=== PATIENT | female | born 1995 | race Caucasian/White ===

== ENCOUNTER → 2023-03-03 13:51 | Outpatient (CLI) | payer OTHER, SELFPAY ==
[2023-03-03 14:39] LABS: Add Manual Diff / Slide Review NO; Basophils Absolute Auto 100 /uL (0-100); Basophils Percent Auto 0.7 % (0-2); Eosinophils Absolute Auto 100 /uL (0-450); Eosinophils Percent Auto 0.8 % (2-4); Hematocrit 38.4 % (36-46); Hemoglobin 13.3 g/dL (12.0-16.0); Lymphocytes Absolute Auto 1300 /uL (1100-4500); Lymphocytes Percent Auto 15.8 % (25-40); Mean Corpuscular HGB Conc 34.6 % (30-36); Mean Corpuscular Hemoglobin 30.2 PG (26-34); Mean Corpuscular Volume 87.4 fL (80-100); Monocytes Absolute Auto 400 /uL (0-900); Monocytes Percent Auto 4.6 % (3-14); Neutrophils Absolute Auto 6600 /uL (1500-7000); Neutrophils Percent Auto 78.1 % (50-75); Platelet Count 214 X10^3/uL (150-400); Red Blood Cell Count 4.39 X10^6/uL (4.0-5.2); Red Cell Distribution Width 13.4 % (11.6-14.8); White Blood Cell Count 8.5 X10^3/uL (4.5-11.0)
[2023-03-03 15:28] LABS: Hepatitis B Surface Antigen NEGATIVE s/c (NEGATIVE); Rubella Antibody IgG 1.9 IU/mL (>15)
[2023-03-03 15:44] LABS: HIV 1 & 2 Ab/Ag 4th Gen Combo NEGATIVE (NEGATIVE); Hep C Virus Ab w/Reflex Quant NEGATIVE s/c (NEGATIVE)
[2023-03-04 10:02] LABS: RPR Screen Non Reactive (Non Reactive); Varicella IgG Antibody 461 index (Immune >165)
== END ==
PROVIDERS: Referring Provider Obstetrics & Gynecology; Visit Provider Obstetrics & Gynecology
DX: Z34.01 Encounter for supervision of normal first pregnancy, first trimester (principal)
CPT/HCPCS: 36415; 80055; 86787; 86803; 86850; 86900; 86901; 87086; 87389

== ENCOUNTER → 2023-05-15 06:55 | Outpatient (CLI) | payer OTHER, SELFPAY ==
--- NOTE | 2023-05-15 06:56 | DI.US.S_ITS ---
PROCEDURE: US OB >= 14 WEEKS FETUS INDICATIONS: Anatomy Scan 20 wks OUTSIDE/PRIOR DATING DATA: LMP-based estimated date of delivery (MORELIA): September 27, 2023. The calculations are made using the clinical office generated MORELIA of September 27, 2023. TECHNIQUE: Real-time scanning was performed of the fetus, with image documentation and biometric measurements. Endovaginal scanning: Not performed COMPARISON: None. FINDINGS: General: A single living intrauterine gestation is present. Presentation: Variable. Placenta: Placental position is anterior , without previa. Amniotic fluid index: 11.8 cm, normal range is 5-24 cm. Single deepest vertical pocket is 3.1 cm. heart rate: 136 beats per minute. Maternal cervical canal: A 3.7 cm long. Normal lower limit is 2.5 cm. biometrics: Biparietal diameter: 4.8 cm, 20 weeks and 3 days Head circumference: 18.5 cm, 20 weeks and 6 days Abdominal circumference: 15.4 cm, 20 weeks and 4 days Femur length: 3.4 cm, 20 weeks and 5 days Clinically estimated gestational age: 20 weeks and 5 days Composite gestational age from present scan: 20 weeks and 5 days Estimated weight and percentile: 367 g, 41st percentile by gestational age Anatomic survey: Neuro: Ventricles are non-dilated at less than 10 mm. Cisterna magna is normal at 3-11 mm. Cerebellum is normal in size and morphology. Nuchal skin fold: Normal at less than 6 mm between 14-21 weeks gestational age. Face: Nose and lips, facial profile are normal. Spine: No evidence for spina bifida. Heart: 4-chambered heart is present, with normal ventricular outflow tracts. Diaphragm: Diaphragm is intact. Stomach: Left-sided stomach is present. Kidneys: No hydronephrosis. Normal is less than 5 mm in 2nd trimester, less than 7 mm in 3rd trimester. Cord: 3-vessel cord has orthotopic insertion. Bladder: Normal in size. Extremities: All 4 extremities identified. IMPRESSION: Single living intrauterine gestation with estimated sonographic gestational age of approximately 20 weeks and 5 days. Normal interval growth has occurred. Estimated weight of approximately 367 g which correlates with the 41st percentile. Normal second-trimester anatomy screening survey. We strive to produce accurate, complete, and clear reports of imaging services. To assist us in improving patient care, this report was composed using standard report templates and voice recognition software. Therefore, it may contain abnormal punctuation, insertions and/or omissions. Occasional wrong-word or sound-alike substitutions may occur. Though we review the report and make efforts to correct it, we do recommend that the report be read carefully in proper context to recognize any text inaccuracies. Dictated by: Antonio Rice M.D. on 05/15/2023 at 11:09 Approved by: Antonio Rice M.D. on 05/15/2023 at 11:12
== END ==
LOC: US 06:56
PROVIDERS: Referring Provider Obstetrics & Gynecology; Visit Provider Obstetrics & Gynecology
DX: Z34.92 Encounter for supervision of normal pregnancy, unspecified, second trimester (principal); Z3A.20 20 weeks gestation of pregnancy
CPT/HCPCS: 76811

== ENCOUNTER → 2023-06-18 13:07 | Outpatient (CLI) | payer OTHER, SELFPAY ==
[2023-06-18 15:06] LABS: Hematocrit 33.2 % (36-46); Hemoglobin 11.3 g/dL (12.0-16.0)
[2023-06-18 16:36] LABS: GTT (PREG) 1 Hour PP 50gm Dose 83 mg/dL (76-139)
== END ==
PROVIDERS: Referring Provider Obstetrics & Gynecology; Visit Provider Obstetrics & Gynecology
DX: Z34.02 Encounter for supervision of normal first pregnancy, second trimester (principal); Z3A.26 26 weeks gestation of pregnancy
CPT/HCPCS: 82950; 85014; 85018

== ENCOUNTER 2023-07-10 09:06 | Observation (INO) | payer OTHER, SELFPAY | END 2023-07-10 11:48 | disposition home or self-care (01) | PROVIDERS: Admitting Provider Obstetrics & Gynecology; Referring Provider Obstetrics & Gynecology; Visit Provider Obstetrics & Gynecology | DX: O36.8130 Decreased fetal movements, third trimester, not applicable or unspecified (principal); Z3A.28 28 weeks gestation of pregnancy | CPT/HCPCS: 59025; 59050; 76815; G0378; G0379 ==

== ENCOUNTER → 2023-09-04 08:52 | Outpatient (CLI) | payer OTHER, SELFPAY ==
[2023-09-05 13:16] LABS: Strep Grp B PCR POS for Grp B Strep
== END ==
PROVIDERS: Visit Provider Obstetrics & Gynecology
DX: Z34.83 Encounter for supervision of other normal pregnancy, third trimester (principal); Z3A.36 36 weeks gestation of pregnancy
CPT/HCPCS: 87653

== ENCOUNTER 2023-09-11 11:04 | Outpatient (CLI) | payer OTHER, SELFPAY ==
[2023-09-11 11:52] LABS: Add Manual Diff / Slide Review NO; Basophils Absolute Auto 100 /uL (0-100); Basophils Percent Auto 0.9 % (0-2); Eosinophils Absolute Auto 100 /uL (0-450); Eosinophils Percent Auto 1.7 % (2-4); Hematocrit 35.8 % (36-46); Lymphocytes Absolute Auto 1400 /uL (1100-4500); Lymphocytes Percent Auto 17.5 % (25-40); Mean Corpuscular HGB Conc 33.4 % (30-36); Mean Corpuscular Hemoglobin 29.6 PG (26-34); Mean Corpuscular Volume 88.5 fL (80-100); Monocytes Absolute Auto 700 /uL (0-900); Neutrophils Absolute Auto 5800 /uL (1500-7000); Neutrophils Percent Auto 70.9 % (50-75); Platelet Count 182 X10^3/uL (150-400); Red Blood Cell Count 4.04 X10^6/uL (4.0-5.2); Red Cell Distribution Width 15.4 % (11.6-14.8); White Blood Cell Count 8.2 X10^3/uL (4.5-11.0)
[2023-09-11 12:03] LABS: Aspartate Aminotransferase 28 IU/L (14-36); BUN Creatinine Ratio 14.3 (6-22); Blood Urea Nitrogen 9 mg/dL (7-17); Estimated Glomerular Filt Rate > 60 mL/min (>60); Uric Acid 4.2 mg/dL (2.5-6.2); Uric Acid 4.3 mg/dL (2.5-6.2)
[2023-09-11 12:12] LABS: Creatinine Urine Random 10.03 mg/dL; Protein (Total) Urine Random 17 mg/dL (0-12); Protein Creatinine Ratio Urine 1.69 GRAM/24H
== END 2023-09-11 12:55 | disposition home or self-care (01) ==
LOC: LABOR 12:29 → OB 09-16 08:11
PROVIDERS: Referring Provider Obstetrics & Gynecology; Visit Provider Obstetrics & Gynecology
DX: O09.513 Supervision of elderly primigravida, third trimester (principal); O16.3 Unspecified maternal hypertension, third trimester; Z3A.37 37 weeks gestation of pregnancy
CPT/HCPCS: 36415; 59025; 59050; 82570; 84156; 84450; 84550; 85025; G0378; G0379

== ENCOUNTER → 2023-09-16 07:01 | Outpatient (CLI) | payer OTHER, SELFPAY ==
--- NOTE | 2023-09-16 07:02 | DI.ECHO.S_ITS ---
[facility] : : [address] : : [place] : : [id number] : : Phone: [phone] Echocardiogram Report + + :Name: BRENDAN ALONSO Study Date: 09/16/2023 Height: 63 in : :[facility] ReadingLocation: Weight: 190 lb : : Gender: Female BSA: 1.9 m2 : :: 1995 Age: 28 yrs BP: 123/81 mmHg: :Reason For Study: RULE OUT BICUSPID AORTIC VALVE : :Ordering Physician: FUAD, : :KIMMY Beckman Performed By: Olga Hartman : :Referring: KIMMY MERIDA : + + Interpretation Summary 1) Normal left ventricular thickness, size, and systolic function (EF 55-60%). 2) Normal right ventricular size and function. 3) The aortic valve is trileaflet. No significant valvular abnormalities noted. 4) No prior Echo available for comparison. Procedure: A two-dimensional transthoracic echocardiogram with color flow and Doppler was performed. The study quality was technically adequate. There is no prior echocardiogram noted for this patient. The patient was in sinus rhythm with heart rates between 61-78 bpm during the exam. Left Ventricle: The left ventricle is normal in size and wall thickness. The ejection fraction is estimated to be 55-60%. Left ventricular systolic function appears normal without focal wall motion abnormalities. Right Ventricle: The right ventricle is normal in size and function. Atria: The left atrial size is normal. Right atrium not well visualized. There is no Doppler evidence for an interatrial shunt. Mitral Valve: The mitral valve is normal in structure and function. There is trace mitral regurgitation. Aortic Valve: The aortic valve is trileaflet. The aortic valve opens well. There is no aortic valve stenosis. No aortic regurgitation is present. Tricuspid Valve: The tricuspid valve is normal in structure and function. There is trace tricuspid regurgitation. Pulmonic Valve: The pulmonic valve leaflets are thin and pliable; valve motion is normal. There is trace pulmonic regurgitation. Great Vessels: The aortic root is normal size. The IVC is of normal diameter and collapses greater than 50% with a sniff. This suggests a low right atrial pressure of 3 mm Hg. Pericardium/ Pleura There is no pericardial effusion. There is no pleural effusion. MMode/2D Measurements & Calculations LVIDd: 4.8 cm LVOT diam: 2.1 cm LVIDs: 3.0 cm Ao root diam: 2.8 cm FS: 38.9 % asc Aorta Diam: 2.9 cm IVSd: 0.84 cm Ao Arch Diam (Prox Trans): 2.6 cm LVPWd: 0.87 cm LV alcaraz. diameter/BSA (cm/m^2): 2.6 LV sys. diameter/BSA (cm/m^2): 1.6 LA A2 area: 17.7 cm2 RA long axis: 5.2 cm LA A4 area: 16.2 cm2 RA area: 18.1 cm2 LA length (vol): 5.0 cm RA vol: 53.1 ml LA vol: 48.5 ml RA : 28.1 ml/m2 LA vol index: 25.6 ml/m2 IVC diam: 0.80 cm RVD1 (basal): 3.9 cm TAPSE: 2.4 cm Doppler Measurements & Calculations Ao V2 max: 113.7 cm/sec LVOT Max Arnaldo: 69.9 cm/sec Ao V2 mean: 78.8 cm/sec LV V1 max P.0 mmHg Ao max P.2 mmHg LV V1 VTI: 14.6 cm Ao mean P.8 mmHg VIRGIL(I,D): 2.0 cm2 Ao V2 VTI: 24.6 cm VIRGIL(V,D): 2.1 cm2 sev ratio: 0.59 VIRGIL indexed to BSA (cm^2/m^2): 1.0 MV E max arnaldo: 77.1 cm/sec PA V2 max: 91.9 cm/sec MV A max arnaldo: 37.2 cm/sec PA V2 mean: 63.7 cm/sec MV E/A: 2.1 PA mean P.8 mmHg Med Peak E' Arnaldo: 9.5 cm/sec PA pr(Accel): 37.9 mmHg E/E' med: 8.1 Lat Peak E' Arnaldo: 11.9 cm/sec E/E' lat: 6.5 E/e' average: 7.3 MV dec time: 0.21 sec SV(LVOT): 48.8 ml Reading Physician:09:39 AM
== END ==
PROVIDERS: Referring Provider Specialist; Visit Provider Specialist
DX: Z34.00 Encounter for supervision of normal first pregnancy, unspecified trimester (principal); Z82.79 Family history of other congenital malformations, deformations and chromosomal abnormalities
CPT/HCPCS: 93306

== ENCOUNTER 2023-09-19 10:46 | Outpatient (CLI) | payer OTHER, SELFPAY | END 2023-09-19 11:50 | disposition home or self-care (01) | LOC: LABOR 11:28 → OB 09-22 08:12 | PROVIDERS: Referring Provider Obstetrics & Gynecology; Visit Provider Obstetrics & Gynecology | DX: O47.1 False labor at or after 37 completed weeks of gestation (principal); Z3A.39 39 weeks gestation of pregnancy | CPT/HCPCS: 59025; 84112; G0378; G0379 ==

== ENCOUNTER 2023-09-21 23:11 | Inpatient (IN) | payer OTHER, SELFPAY ==
[2023-09-22 00:02] LABS: Add Manual Diff / Slide Review NO; Basophils Absolute Auto 100 /uL (0-100); Basophils Percent Auto 0.7 % (0-2); Eosinophils Absolute Auto 100 /uL (0-450); Eosinophils Percent Auto 0.8 % (2-4); Hematocrit 37.3 % (36-46); Hemoglobin 12.5 g/dL (12.0-16.0); Lymphocytes Absolute Auto 1800 /uL (1100-4500); Mean Corpuscular HGB Conc 33.4 % (30-36); Mean Corpuscular Hemoglobin 29.6 PG (26-34); Mean Corpuscular Volume 88.5 fL (80-100); Monocytes Absolute Auto 800 /uL (0-900); Monocytes Percent Auto 7.3 % (3-14); Neutrophils Absolute Auto 8300 /uL (1500-7000); Neutrophils Percent Auto 75.2 % (50-75); Platelet Count 185 X10^3/uL (150-400); Red Blood Cell Count 4.22 X10^6/uL (4.0-5.2); Red Cell Distribution Width 16.4 % (11.6-14.8)
[2023-09-22] MEDS: LACTATED RINGERS 1,000 ML 100 ML IV (00:17)
[2023-09-22] MEDS: AMPICILLIN 2,000 MG in SODIUM CHLORIDE 0.9% 100 ML 200 MG IV (00:17)
[2023-09-22 01:03] VITALS: BP 126/85
[2023-09-22] MEDS: AMPICILLIN 1,000 MG in SODIUM CHLORIDE 0.9% 100 ML 200 MG IV (04:06)
--- NOTE | 2023-09-22 05:08 | PM.OBHP.IH.1 ---
OB HPI Date/Time Date of admission: 09/22/23 Date Patient Seen: 09/22/23 Time Patient Seen: 05:08 History of Present Condition Chief complaint: Labor MORELIA Calculator Estimated Delivery Date Method Current WG Current Estimate 09/27/23 LMP (Certain) 39w 2d Estimated Gestational Age (weeks): 39+2 : 1 Para: 0 care: good care, initiated at week # (7), number of visits (12) and pounds weight gain (48) Dating criteria OB: LMP confirmed by 1st trimester US Ultrasounds: normal 1st trimester US Obstetrical complications: none Medical complications OB: none Preadmission Labs Last OB Lab Results: Blood Type A Positive 09/21/23 23:50 Antibody Screen Negative 09/21/23 23:50 Hematocrit 37.3 % (36-46) 09/21/23 23:50 Hemoglobin 12.5 g/dL (12.0-16.0) 09/21/23 23:50 Hepatitis B Surface Antigen Negative s/c (NEGATIVE) 03/03/23 13:59 Hepatitis C Antibody Negative s/c (NEGATIVE) 03/03/23 13:59 Rubella Antibody 1.9 IU/mL (>15) L 03/03/23 13:59 Varicella-Zoster IgG Antibody 461 index (Immune >165) 03/03/23 13:59 Glucose 1 Hour 83 mg/dL (76-139) 06/18/23 14:20 Group B Streptococcus (PCR) Pos for grp b strep H 09/04/23 08:52 -: Chlamydia screen: negative, Gonorrhea screen: negative and Urine: negative -: PAP smear: Normal Genetic Screens: Cell-free DNA: Normal External Labs -: Urine: negative Evaluation Evaluation Baseline heart rate: 145 Variability: Moderate (11-25) monitor accelerations: Present Monitor Decelerations: Absent Uterine Contraction Intensity: Strong/Firm Dilation (cm): 10 (per RN) Effacement (%): 100 station: +1 Position of cervix: anterior Consistency: soft PFSH Medical History (Updated 09/16/23 @ 16:35 by Vivian Melgar DO) Anxiety Surgical History (Updated 02/05/23 @ 15:44 by Alise Egan, RN) H/O oral surgery [place] teeth extracted Family History (Updated 02/05/23 @ 15:50 by Alise Egan RN) Mother Ocular melanoma Father Prostate cancer Grandfather Skin cancer Uncle Bone cancer Uncle Bladder cancer Family/Other Diabetes mellitus Grandfather Heart attack Brother Congenital heart defect Social History marital status: number of children: 0 household members: spouse lives independently: Yes caregiver/support person: Yes housing: condominium pets and animals: Yes education level: college (bachelor's degree) occupational status: employed (substitute para-educator, package designer) current occupational exposures/hazards: No darlin/gnosticist: Confucianism special darlin needs: Yes (Would want a photo mask processor for last rites if necessary) travel history: recent (domestic only) seatbelt use: always helmet use: Yes water heater temp set < 120 deg: Yes working smoke detector in home: Yes fire extinguisher in home: No carbon monox detector in home: Yes firearms in home: No do you feel safe at home: Yes Smoking Status: Never smoker second hand exposure: No alcohol intake: former (rarely when not ) substance use type: does not use during the past year weight has: remained stable well-balanced diet: daily or most days daily servings fruits/ve-4 caffeine: Yes (AM cup coffee) Type(s) of exercise: bicycling (stationary bike), weight lifting and running Meds Home Medications and Allergies Home Medications Medication Instructions Recorded Confirmed Type vitamin-ferrous sulfate tab PO 02/05/23 09/18/23 History 27 mg iron-folic acid 0.8 mg tablet sertraline 50 mg tablet (Zoloft) 75 mg PO DAILY 02/05/23 09/18/23 History Allergies Allergy/AdvReac Type Severity Reaction Status Date / Time No Known Drug Allergies Allergy Unverified 09/18/23 11:01 OB Exam Narrative Exam Narrative: Generally: Patient on hands and knees FH: 39 cm in office EFW: 7 1/2# Ext: Trace edema Objective Labs 09/21/23 23:50 Labs: Laboratory Results - last 24 hr 09/21/23 23:50 WBC 11.0 RBC 4.22 Hgb 12.5 Hct 37.3 MCV 88.5 MCH 29.6 MCHC 33.4 RDW 16.4 H Plt Count 185 Neut % (Auto) 75.2 H Lymph % (Auto) 16.0 L [place] % (Auto) 7.3 Eos % (Auto) 0.8 L Baso % (Auto) 0.7 Neut # (Auto) 8300 H Lymph # (Auto) 1800 [place] # (Auto) 800 Eos # (Auto) 100 Baso # (Auto) 100 Blood Type A Positive Antibody Screen Negative Assessment and Plan Assessment and Plan Assessment and Plan narrative: Assessment: 28 year old at 39+2 weeks gestation, entering second stage of labor GBS+ s/p 2 doses of antibiotics Plan: Expectant management to Time Spent with Patient Total time spent with greater than 50% in coordination of care (as documented) at patient's floor/unit and/or counseling patient:: 15-24 minutes
--- NOTE | 2023-09-22 07:26 | P.PCNOB_ITS ---
Labor & Delivery Delivery date: 09/22/23 Cervical ripening method: none Induction method: none Delivery monitor: external FHT (Doppler) Route of delivery: Episiotomy description: None L&D Laceration Description: Vaginal - 1st Degree (left side) and Labial (Right) Delivery repair: chromic Quantitative Blood Loss: 463 Anesthesia Type: Local (For repair only, Nitrous for repair only) Complications: None Narrative: Patient complete pushed for hour and 34. At 6:34 a.m. a.m., a live female delivered spontaneously in the DAKSHA presentation, over an intact perineum. Double nuchal cord reduced on the perineum. The remainder of the body de livered without difficulty in the infant was placed on mom's abdomen. After the cord stopped pulsing, the cord was double clamped and cut. Cord bloods were obtained. Pitocin was given in the IV fluids. The placenta delivered intact with a three-vessel cord at 6:46 a.m.. Fundus was massaged to firm. A first- degree vaginal and right labial laceration were repaired in the usual fashion. Hemostasis was achieved. Local, 1% lidocaine, was used for the repair. No epidural. weight 7 lb 2.3 oz. Apgars 6 at 1 minute, 8 at 5 minutes, and 9 at 10 minutes. . Mom and infant stable to recovery. [place] Baby 1: Infant gender: Female Presentation: vertex Position: Left Occiput Posterior Placenta delivery description: Spontaneous Cord Vessel Description: 3 Vessels, Nuchal Cord (x2), Reduced (on the perineum) and Clamped/Cut (after cord stopped pulsing) score (1 min): 6 score (5 min): 8 score (10 min): 9 weight: 7 lb 2.3 oz Plan for aftercare: Routine care
[2023-09-22] MEDS: OXYTOCIN PREMIX 30 UNIT/500 ML PLAST..BAG 200 UNIT IV (07:48)
[2023-09-22] MEDS: LIDOCAINE 1% 20 ML INJ (07:48)
[2023-09-22] MEDS: IBUPROFEN 600 MG TABLET PO ×3 (08:29→21:15)
[2023-09-22] MEDS: ACETAMINOPHEN 325 MG TABLET 650 MG PO ×3 (08:30→21:14)
[2023-09-22] MEDS: DERMOPLAST SPRAY 20% 60 ML 1 SPRAY TOP (18:34)
[2023-09-23] MEDS: ACETAMINOPHEN 325 MG TABLET 650 MG PO (06:23)
[2023-09-23] MEDS: IBUPROFEN 600 MG TABLET PO (06:23)
[2023-09-23 06:33] LABS: Hematocrit 29.7 % (36-46); Hemoglobin 10.1 g/dL (12.0-16.0)
[2023-09-23] MEDS: PRENATAL VIT,CALC/IRON/FOLIC 1 TABLET 1 TAB PO (10:01)
[2023-09-23] MEDS: DOCUSATE 100 MG CAPSULE PO (10:01)
--- NOTE | 2023-10-16 00:46 | P.DS_ITS ---
Discharge Providers Provider Date of admission: 09/21/23 23:11 Discharge Date: 09/23/23 Primary care physician: Isabel GOODWIN Provider Consults: 09/21/23 23:43 Consult to Anesthesiology Urgent Comment: Consulting Provider: Anesthesiologist Reason for consultation: Epidural 09/23/23 07:24 Consult to Underwriter [employer] Routine Comment: Discharge provider: Za Ryan MD Summary Hospital Course Date Patient Seen: 09/23/23 Time Patient Seen: 12:30 Diagnoses: 39-2/7 weeks gestation Group B strep positive Spontaneous vaginal delivery First-degree vaginal laceration Hospital Course: Patient is a 28-year-old 1 para 0 presented on September 22, 2023 at 39-,2/7 weeks gestation in active labor. She progressed to complete dilation and had a spontaneous vaginal delivery without complication. She had a first-degree vaginal laceration which was repaired. Her course was unremarkable. She was discharged home on September 23, 2023. Peripartum Data Delivery Method: Natural Vaginal Laceration Description: Vaginal - 1st Degree Episiotomy description: None Procedures: Spontaneous vaginal delivery First-degree vaginal laceration repair complications: none [place] 1: Gender: Female Disposition of : home Status at Discharge Cognitive/behavioral status at discharge: oriented Functional status at discharge: independent ambulation Overall status at discharge: patient is progressing back to baseline Time Spent with Patient Time attestation: Total time spent providing and/or coordinating discharge services: Time spent: Less than 30 minutes Objective Labs 09/23/23 06:18 Exam Narrative Exam Narrative: Generally: Patient is sitting up in bed, holding infant, no acute distress Fundus: Firm at U -1 Extremities: Trace edema, negative [place] Discharge Plan Discharge Plan Patient Disposition: Home Provider Discharge Comment: Call with fever, chills, or bleeding vaginally more than a pad in an hour Tylenol 650 mg every 6 hours as needed Ibuprofen 600 mg every 6 hours as needed Continue vitamins Push oral fluids Discharge orders & Medications Prescriptions: Continued vit-ferrous sulfat-FA 27 mg iron- 0.8 mg tablet PO sertraline [Zoloft] 50 mg tablet 75 mg PO DAILY Patient Comments: Weaning down, will try 50mg x2 weeks, then 25mg x2 weeks then stop. Follow up/Referrals: Za Ryan MD [Physician] - 6 Weeks (Please follow up with Dr. Whyte for your 6 week post check up on Friday, November 04 @ 0900. ) Diet/Activity/Treatments Diet: Regular Activity: Nothing in the vagina for 6 weeks Skin/Wound/Dressing Care Report to your healthcare provider any signs of infection, such as:: chills, fever, increased pain and unusual drainage Visit Report/Discharge Packet Instructions: Depression, DI for Labor and Delivery, Vaginal Stand Alone Forms: Discharge: Care, Patient Portal/API, Stroke Signs & Symptoms Discharge Data Primary Care Provider: ProviderIsabel
== END 2023-09-23 11:50 | disposition home or self-care (01) | DRG 807 ==
PROVIDERS: Admitting Provider Obstetrics & Gynecology; Referring Provider Obstetrics & Gynecology; Visit Provider Obstetrics & Gynecology
DX: O99.824 Streptococcus B carrier state complicating childbirth (principal); Z37.0 Single live birth; O70.0 First degree perineal laceration during delivery; Z3A.39 39 weeks gestation of pregnancy; O47.1 False labor at or after 37 completed weeks of gestation
CPT/HCPCS: 36415; 59025; 59050; 85014; 85018; 85025; 86850; 86900; 86901; G0379; J0290; J2590

== ENCOUNTER → 2024-04-29 18:39 | Outpatient (CLI) | payer OTHER, SELFPAY ==
--- NOTE | 2024-04-29 18:44 | DI.MRI.S_ITS ---
PROCEDURE: MR PELIS WO/W CON INDICATIONS: Urethral mass TECHNIQUE: Noncontrast coronal HASTE; 3-plane nonbreath-hold T2 FSE, axial T1 FSE with and without fat saturation obtained through the urethra and bladder. After the administration of contrast, axial and sagittal VIBE or 2-D FLASH with fat saturation obtained through the urethra and bladder. Optional diffusion weighted imaging or ADC may be performed. COMPARISON: None. FINDINGS: Image quality: Excellent. Urethra: Urethra is normal in caliber. No diverticula or masses identified. Genitalia: There are 3 cystic lesions with T2 hyperintense, T1 isointense to hypointense signal located along the anterior margin of the the vagina, above the level of the pubic symphysis. These measure 0.9 x 1.2 cm, 1.3 x 0.6 cm and 0.7 x 0.6 cm. More inferior images through the vagina and labia demonstrate no Bartholin's gland cyst. Peritoneum and bowel: No pathologic free pelvic fluid. Visualized inferior colon loops, rectum, and anus appear normal. The ovaries are enlarged, with greater than 12 follicles per ovary. Soft tissues: Ischiorectal fossa appears normal in morphology. No adenopathy by size criteria. IMPRESSION: Three cystic lesions associated with the anterior vaginal wall above the pubic symphysis. 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 Kidneys are not visualized on this examination ([id number] syndrome not excluded); consider renal ultrasound. Greater than 12 follicles per ovary, which can be seen in the clinical setting of PCOS. Dictated by: Danis Smith M.D. on 05/02/2024 at 8:26 Approved by: Danis Smith M.D. on 05/02/2024 at 8:32
== END ==
PROVIDERS: Referring Provider Obstetrics & Gynecology; Visit Provider Obstetrics & Gynecology
DX: N89.8 Other specified noninflammatory disorders of vagina (principal); N36.8 Other specified disorders of urethra
CPT/HCPCS: 72197; A9579